=== PATIENT | female | born 1960 | race Caucasian/White ===

== ENCOUNTER → 2023-03-01 09:23 | Outpatient (BNVA) | payer BC, SELFPAY | PROVIDERS: Visit Provider Family Medicine | DX: I10 Essential (primary) hypertension (principal); E11.9 Type 2 diabetes mellitus without complications; E78.5 Hyperlipidemia, unspecified | CPT/HCPCS: 80053; 80061; 83036; 84439; 84443; 85025 ==

== ENCOUNTER 2023-04-05 08:16 | Outpatient (CLI) | payer BC, SELFPAY ==
--- NOTE | 2023-04-05 08:19 | MM_ITS ---
WS: [email or web address] SCREENING DIGITAL TOMOSYNTHESIS MAMMOGRAM WITH CAD HISTORY: Z12.39 - Encounter for other screening for malignant neop... COMPARISON: None available. Bilateral CC and MLO with tomosynthesis views submitted. Synthetic mammography reviewed. Computer aid ed detection analyzed. Breast composition: There are scattered areas of fibroglandular density. No suspicious masses, microc alcifications or architectural distortion. Biopsy clip in the anterior lateral RIGHT breast. No assoc iated mass. Benign calcifications in each breast. IMPRESSION: MM/[place] [id number] BI-RADS: 2-Benign FOLLOW UP: 1 Year Follow-up
== END 2023-04-05 08:17 | disposition home or self-care (01) ==
LOC: RAD 08:16
PROVIDERS: PCP Family Medicine; Visit Provider Family Medicine
DX: Z12.31 Encounter for screening mammogram for malignant neoplasm of breast (principal)
CPT/HCPCS: 77063; 77067

== ENCOUNTER → 2023-05-28 11:02 | Outpatient (BNVA) | payer BC, SELFPAY | PROVIDERS: PCP Family Medicine; Visit Provider Family Medicine | DX: E11.9 Type 2 diabetes mellitus without complications (principal); E87.6 Hypokalemia | CPT/HCPCS: 80053; 83036 ==

== ENCOUNTER 2023-06-08 08:31 | Outpatient (RCR) | payer BC, SELFPAY | END 2023-07-01 23:59 | disposition home or self-care (01) | LOC: SPT 08:31 | PROVIDERS: PCP Family Medicine; Visit Provider Family Medicine | DX: M75.02 Adhesive capsulitis of left shoulder (principal) | CPT/HCPCS: 97110; 97140; 97161 ==

== ENCOUNTER → 2023-06-28 16:03 | Outpatient (BNVA) | payer BC, SELFPAY | PROVIDERS: PCP Family Medicine; Visit Provider Family Medicine | DX: R39.9 Unspecified symptoms and signs involving the genitourinary system (principal) | CPT/HCPCS: 81000 ==

== ENCOUNTER 2023-07-02 06:00 | Outpatient (RCR) | payer BC, SELFPAY | END 2023-07-20 23:59 | disposition home or self-care (01) | LOC: SPT 06:00 | PROVIDERS: PCP Family Medicine; Visit Provider Family Medicine | DX: M75.02 Adhesive capsulitis of left shoulder (principal) | CPT/HCPCS: 97110 ==

== ENCOUNTER → 2023-10-14 11:50 | Outpatient (BNVA) | payer BC, SELFPAY | PROVIDERS: PCP Family Medicine; Visit Provider Family Medicine | DX: E11.9 Type 2 diabetes mellitus without complications (principal) | CPT/HCPCS: 80053; 83036 ==

== ENCOUNTER 2023-12-08 12:54 | Outpatient (RCR) | payer BC, SELFPAY | END 2024-01-01 23:59 | disposition home or self-care (01) | LOC: SPT 12:54 | PROVIDERS: PCP Family Medicine; Visit Provider Family Medicine | DX: M75.02 Adhesive capsulitis of left shoulder (principal) | CPT/HCPCS: 97110; 97161 ==

== ENCOUNTER 2024-01-06 14:29 | Outpatient (RCR) | payer BC, SELFPAY | END 2024-01-31 23:59 | disposition home or self-care (01) | LOC: SPT 14:29 | PROVIDERS: PCP Family Medicine; Visit Provider Family Medicine | DX: M75.02 Adhesive capsulitis of left shoulder (principal) | CPT/HCPCS: 97110; 97140; 97164 ==

== ENCOUNTER 2024-02-01 06:30 | Outpatient (RCR) | payer BC, SELFPAY | END 2024-03-02 23:59 | disposition home or self-care (01) | LOC: SPT 06:30 | PROVIDERS: PCP Family Medicine; Visit Provider Family Medicine | DX: M75.02 Adhesive capsulitis of left shoulder (principal) | CPT/HCPCS: 97110; 97140; 97164 ==

== ENCOUNTER 2024-03-03 06:00 | Outpatient (RCR) | payer BC, SELFPAY | END 2024-03-17 23:59 | disposition home or self-care (01) | LOC: SPT 06:00 | PROVIDERS: PCP Family Medicine; Visit Provider Family Medicine | DX: M75.02 Adhesive capsulitis of left shoulder (principal) | CPT/HCPCS: 97110 ==

== ENCOUNTER 2024-04-12 08:47 | Outpatient (CLI) | payer BC, SELFPAY ==
--- NOTE | 2024-04-12 09:00 | MM_ITS ---
WS: [email or web address] SCREENING DIGITAL BREAST TOMOSYNTHESIS MAMMOGRAM WITH CAD HISTORY: screening COMPARISON: 04/05/2023 Bilateral CC and MLO with tomosynthesis and synthetic mammography submitted. Computer aided detection analyzed. Breast composition: There are scattered areas of fibroglandular density. Central RIGHT breast mass me asures 8 x 11 mm. This mass probably was present on the 10/2022 but better visualized today. There is a biopsy clip in the anterior RIGHT breast which is not within this mass. No prior studies indicating the reason for location of the biopsy. LEFT breast is negative. MM/MM scr BI tomosynthesis [id number] IMPRESSION: BI-RADS: 0 - Incomplete: Need additional imaging evaluation. FOLLOW UP: Need Additional Imaging RIGHT breast: Spot compression views (CC and MLO). True ML. Ultrasound to follo w if abnormality persists.
== END 2024-04-12 08:48 | disposition home or self-care (01) ==
LOC: RAD 08:47
PROVIDERS: PCP Family Medicine; Visit Provider Family Medicine
DX: Z12.31 Encounter for screening mammogram for malignant neoplasm of breast (principal); R92.323 Mammographic fibroglandular density, bilateral breasts; N63.41 Unspecified lump in right breast, subareolar
CPT/HCPCS: 77063; 77067

== ENCOUNTER 2024-05-01 09:29 | Outpatient (CLI) | payer BC, SELFPAY ==
--- NOTE | 2024-05-01 09:36 | MM_ITS ---
WS: [email or web address] ADDITIONAL VIEWS RIGHT MAMMOGRAM WITH DIGITAL BREAST TOMOSYNTHESIS. RIGHT BREAST ULTRASOUND HISTORY: RIGHT breast mass. COMPARISON: 04/12/2024, 04/05/2023, RIGHT MAMMOGRAM: Spot compression views and true ML with digital breast tomosynthesis and SM. Solid well-circumscribed mass persists in retroareolar region probably near 12:00 measuring 9 x 9 x 9 mm. No associated calcifications. RIGHT BREAST ULTRASOUND 2-D and color Doppler imaging submitted. Very subtle hypoechoic mass identified in the RIGHT breast at 12:00 without shadowing. Mass is approx imately 7 cm from the nipple. Mass measures 1.0 x 0.8 x 0.8 cm. This does correspond in shape and loc ation to the mammographic abnormality. This is nearly isoechoic to the adjacent soft tissue. There is no shadowing or increased vascularity. Note: Mrs. Cordero has indicated to me that there are prior mammograms at an outside institution that s he will attempt to retrieve. If this mass has been present on prior imaging studies no biopsy will be necessary. If these mammograms do not become available biopsy should be obtained. MM/MM diag RT tomosynthesis [id number] IMPRESSION: BI-RADS: 4- Suspicious Finding - Biopsy Should be Considered FOLLOW UP: Biopsy Recommended Ultrasound-guided biopsy is recommended of the mass in the RIGHT breast at 12:0 0.
== END 2024-05-01 09:30 | disposition home or self-care (01) ==
LOC: RAD 09:30
PROVIDERS: PCP Family Medicine; Visit Provider Family Medicine
DX: N63.15 Unspecified lump in the right breast, overlapping quadrants (principal)
CPT/HCPCS: 76642; 77061; G0279

== ENCOUNTER 2024-05-24 11:53 | Outpatient (CLI) | payer BC, SELFPAY ==
--- NOTE | 2024-05-24 13:15 | US_ITS ---
WS: [email or web address] ULTRASOUND-GUIDED RIGHT BREAST BIOPSY CLINICAL INFORMATION: breast mass FINDINGS: The procedure including risks, benefits, and complications were discussed with the patient who agreed to proceed. Using sterile technique patient was prepped and draped in the usual sterile fashion. After 1% lidocaine utilizing real-time ultrasound guidance 6 14-gauge cores were obtained of the RIGHT breast lesion at the 12 o'clock position 7 cm from the nipple. Subsequently a titanium clip was placed in the biopsy cavity. No immediate complications. 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 Uncomplicated ultrasound-guided RIGHT breast biopsy. 2. The pathology demonstrates fibroadenoma DENSITY: There are scattered areas of fibroglandular density. BI-RADS: 2 - Benign. FOLLOW UP: 1 Year Follow-up
== END 2024-05-24 11:54 | disposition home or self-care (01) ==
LOC: RAD 11:55
PROVIDERS: PCP Family Medicine; Visit Provider Family Medicine
DX: D24.1 Benign neoplasm of right breast (principal)
CPT/HCPCS: 19083; 88305

== ENCOUNTER → 2024-10-20 08:15 | Outpatient (BNVA) | payer BC, SELFPAY | PROVIDERS: PCP Family Medicine; Visit Provider Family Medicine | DX: E11.9 Type 2 diabetes mellitus without complications (principal); I10 Essential (primary) hypertension | CPT/HCPCS: 80053; 80061; 83036; 84439; 84443; 85025 ==

== ENCOUNTER → 2025-01-10 10:24 | Outpatient (BNVA) | payer BC, SELFPAY | PROVIDERS: PCP Family Medicine; Visit Provider Family Medicine | DX: E11.9 Type 2 diabetes mellitus without complications (principal) | CPT/HCPCS: 80053; 83036 ==

== ENCOUNTER 2025-02-12 12:14 | Outpatient (CLI) | payer BC, SELFPAY ==
--- NOTE | 2025-02-12 12:30 | MM_ITS ---
WS: [email or web address] BILATERAL 3D TOMOSYNTHESIS DIGITAL DIAGNOSTIC MAMMOGRAPHY WITH CAD CLINICAL INFORMATION: hx of recent mass. biopsy negative HISTORY: History of recent RIGHT benign biopsy COMPARISON: 2023 TECHNIQUE: Bilateral CC, MLO, and ML views. FINDINGS: Scattered fibroglandular densities bilaterally. Biopsy clips RIGHT breast. A few incidental punctate calcifications. Stable nodules central RIGHT breast. No suspicious focal mass, asymmetry, calcifications, or architectural distortion. No evidence of malignancy. MM/MM diag tomosynthesis [id number] IMPRESSION: DENSITY: There are scattered areas of fibroglandular density. BI-RADS: 2 - Benign. FOLLOW UP: 1 Year Follow-up Recommend return to annual screening mammography.
== END 2025-02-12 12:15 | disposition home or self-care (01) ==
LOC: RAD 12:16
PROVIDERS: PCP Family Medicine; Visit Provider Family Medicine
DX: Z12.31 Encounter for screening mammogram for malignant neoplasm of breast (principal); N64.4 Mastodynia; R92.323 Mammographic fibroglandular density, bilateral breasts; Z96.89 Presence of other specified functional implants; R92.1 Mammographic calcification found on diagnostic imaging of breast; N63.41 Unspecified lump in right breast, subareolar
CPT/HCPCS: 77062; G0279

== ENCOUNTER → 2025-02-28 12:34 | Outpatient (BNVA) | payer BC, SELFPAY | PROVIDERS: PCP Family Medicine; Visit Provider Nurse Practitioner Women's Health | DX: Z12.4 Encounter for screening for malignant neoplasm of cervix (principal) | CPT/HCPCS: 87624 ==